=== PATIENT | male | born 1960 | race African-American/Black ===

== ENCOUNTER 2017-06-26 16:36 | Emergency (ER) | payer MEDICARE, OTHER ==
[~2017-06-26] VITALS: Ht 170.2 cm; Wt 57.0 kg
[2017-06-26] MEDS ORDERED: SERT25TA74 PO (17:02)
[2017-06-26] MEDS ORDERED: KEPP500 PO (17:02)
[2017-06-26] MEDS ORDERED: PANT40TA4 PO (17:02)
[2017-06-26] MEDS ORDERED: RISO02 PO (17:02)
[2017-06-26] MEDS ORDERED: PHEN100C4 PO (17:02)
[2017-06-26] MEDS ORDERED: TRAZ-129 PO (17:02)
[2017-06-26] MEDS ORDERED: ONDANSETRON HCL 4MG/2ML VIAL IV STA (23:29)
[2017-06-26] MEDS ORDERED: SODIUM CHLORIDE 0.9% 1,000 ML IV ONE (23:29)
[2017-06-27 00:14] LABS: BASOPHILS % 0.8 % (0.0-2.0); EOSINOPHILS % 0.8 % (0.0-5.0); HEMATOCRIT. 35.4 % (42.0-52.0); HEMOGLOBIN. 11.9 g/dL (14.0-18.0); LYMPHOCYTES % 18.3 % (20.0-50.0); MEAN CORPUSCULAR HEMOGLOBIN 30.9 pg (28.0-32.0); MEAN CORPUSCULAR VOLUME 91.8 fL (80.0-94.0); MEAN PLATELET VOLUME 6.9 fl (7.4-10.4); MONOCYTES % 3.5 % (2.0-8.0); NEUTROPHILS % 76.6 % (40.0-76.0); PLATELET 252 x1000/uL (130-400); RED BLOOD CELL COUNT 3.85 mill/uL (4.7-6.1); RED CELL DISTRIBUTION WIDTH 14.1 % (11.6-14.6)
[2017-06-27 00:24] LABS: PROTHROMBIN TIME 10.8 sec (9.4-11.6)
[2017-06-27 00:29] LABS: CHLORIDE 104 mEq/L (98-107)
[2017-06-27 01:42] LABS: CLARITY URINE CLEAR (CLEAR); COLOR URINE YELLOW (YELLOW); KETONES URINE NEGATIVE (NEGATIVE); LEUKOCYTE ESTERASE URINE NEGATIVE (NEGATIVE); NITRITE URINE NEGATIVE (NEGATIVE); OCCULT BLOOD URINE NEGATIVE (NEGATIVE); PROTEIN URINE NEGATIVE (NEGATIVE); SPECIFIC GRAVITY URINE 1.026 (1.005-1.030)
[2017-06-27 06:15] VITALS: BP 128/70
== END 2017-06-27 07:05 | disposition home or self-care (01) ==
LOC: ER 16:36
DX: G93.40 Encephalopathy, unspecified (principal); R11.2 Nausea with vomiting, unspecified; E11.9 Type 2 diabetes mellitus without complications; F03.90 Unspecified dementia, unspecified severity, without behavioral disturbance, psychotic disturbance, mood disturbance, and anxiety; F31.9 Bipolar disorder, unspecified; Z87.820 Personal history of traumatic brain injury
CPT/HCPCS: 36415; 71045; 80053; 81003; 83690; 85025; 85610; 87804; 93005; 96374; 99285; J2405; J7030